=== PATIENT | female | born 1995 | race Caucasian/White ===

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

== ENCOUNTER 2019-03-08 20:36 | Emergency (ER) | payer BC ==
[~2019-03-08] VITALS: Ht 177.8 cm; Wt 86.2 kg
[2019-03-08 21:24] VITALS: BP_SYST 118
[2019-03-09] MEDS ORDERED: KETOROLAC TROMETHAMINE 60 MG/2 ML VIAL IM ONE
[2019-03-09] MEDS ORDERED: DIPH-TET-PERTUS Vaccine 0.5 ML VIAL (ADACEL) I.M. ONE
[2019-03-09] MEDS ORDERED: DEXAMETHASONE SOD PHOSPHATE 10 MG/ML VIAL IM ONE
[2019-03-09 01:20] VITALS: BP_SYST 118
== END 2019-03-09 01:20 | disposition home or self-care (01) ==
LOC: SED 20:36
DX: T63.511A Toxic effect of contact with stingray, accidental (unintentional), initial encounter (principal); Y92.89 Other specified places as the place of occurrence of the external cause
CPT/HCPCS: 73630; 90471; 90715; 96372; 99283; J1100; J1885